=== PATIENT | male | born 1970 | race Hispanic/Latino ===

== ENCOUNTER 2018-08-28 13:44 | Emergency (ER) | payer OTHER ==
[2018-08-28 15:27] LABS: Absolute Lymphocytes (CBC) 1.7 K/uL (0.7-4.9); Absolute Monocytes 0.6 K/uL (0.1-1.3); Absolute Neutrophil 5.8 K/uL (1.8-8.0); Basophils % 0.8 % (0-1.3); Hematocrit 49.7 % (39.6-49.0); Lymphocytes % 20.2 % (15.3-44.8); MPV 8.7 fL (7.6-11.3); Monocytes % 7.1 % (3.3-12.3); RBC Red Blood Cell Count 5.57 M/uL (4.33-5.43)
[2018-08-28 15:29] LABS: Protime INR 0.96
--- NOTE | 2018-08-28 15:30 | RAD REPORT ---
EXAM DESCRIPTION: CT - Head Brain Wo Cont - 08/28/2018 3:15 pm CLINICAL HISTORY: Left arm numbness COMPARISON: 2015 TECHNIQUE: Computed axial tomography of the head was obtained. IV contrast was not requested. All CT scans are performed using dose optimization technique as appropriate and may include automated exposure control or mA/KV adjustment according to patient size. FINDINGS: An intracranial bleed is not seen . The ventricles are normal in caliber. No extra-axial fluid collection is noted. Fluid within the sinuses/ mastoids is not seen. IMPRESSION: No acute intracranial abnormality is seen. If patient's symptoms persist MRI of the bra in would be recommended.
--- NOTE | 2018-08-28 15:39 | RAD REPORT ---
EXAM DESCRIPTION: Valeriy Single View08/28/2018 3:31 pm CLINICAL HISTORY: Chest pain COMPARISON: 2016 FINDINGS: The lungs appear clear of acute infiltrate. The heart is normal size IMPRESSION: No acute abnormalities displayed
[2018-08-28 15:47] LABS: ALT/SGPT 62 U/L (12-78); AST/SGOT 28 U/L (15-37); Albumin 4.1 g/dL (3.4-5.0); Alkaline Phosphatase 81 U/L (45-117); BUN Blood Urea Nitrogen 12 mg/dL (7-18); Bicarbonate 25 mmol/L (21-32); Bilirubin Direct < 0.1 mg/dL (0-0.2); Bilirubin Total 0.4 mg/dL (0.2-1.0); Glucose Level 95 mg/dL (74-106); Magnesium 2.2 mg/dL (1.8-2.4); NT PRO-BNP 14 pg/mL (<125); Potassium 3.8 mmol/L (3.5-5.1); Protein, Total 7.5 g/dL (6.4-8.2); Sodium Level 140 mmol/L (136-145); Troponin (Emerg Dept Use Only) < 0.02 ng/mL (0.0-0.045)
--- NOTE | 2018-08-28 16:10 | EDPHYS ---
Physician Documentation [facility] Name: Charles Sandoval Age: 47 yrs Sex: Male : 1970 Arrival Date: 08/28/2018 Time: 13:46 Bed 17 Private MD: ED Physician Emmanuel Huntley HPI: 08/28 18:02 This 47 yrs old Male presents to ER via Ambulatory with complaints of Numbness kdr Of Arm, Dizziness. 18:02 The patient or guardian complains of Tingling and pain to left upper extremity that kdr started yesterday. The complaints affect the left bicep. Context: The problem was sustained at home. Onset: The symptoms/episode began/occurred gradually, yesterday. Treatment prior to arrival includes: no previous treatment. Modifying factors: The symptoms are alleviated by nothing. the symptoms are aggravated by nothing. Associated signs and symptoms: The patient has no apparent associated signs or symptoms. Severity of symptoms: At their worst the symptoms were very mild. The patient has not experienced similar symptoms in the past. The patient has not recently seen a physician. Historical: - Allergies: 13:50 Celebrex; sg - Home Meds: 13:50 bupropion HCl 100 mg Oral tab 1 tab 3 times per day [Active]; sg - PMHx: 13:50 Depression; PTSD; sg - PSHx: 13:50 inguinal hernia; left knee; sg - Immunization history:: Adult Immunizations up to date. - Social history:: Smoking status: Patient/guardian denies using tobacco. - Ebola Screening: : Patient negative for fever greater than or equal to 101.5 degrees Fahrenheit, and additional compatible Ebola Virus Disease symptoms Patient denies exposure to infectious person Patient denies travel to an Ebola-affected area in the 21 days before illness onset No symptoms or risks identified at this time. ROS: 18:02 Constitutional: Negative for fever, chills, and weight loss, Eyes: Negative for injury, kdr pain, redness, and discharge, ENT: Negative for injury, pain, and discharge, Neck: Negative for injury, pain, and swelling, Cardiovascular: Negative for chest pain, palpitations, and edema, Respiratory: Negative for shortness of breath, cough, wheezing, and pleuritic chest pain, Abdomen/GI: Negative for abdominal pain, nausea, vomiting, diarrhea, and constipation, Back: Negative for injury and pain, : Negative for injury, bleeding, discharge, and swelling, MS/Extremity: Negative for injury and deformity, Skin: Negative for injury, rash, and discoloration, Psych: Negative for depression, suicide ideation, homicidal ideation, and hallucinations - postive for anxiety Allergy/Immunology: Negative for hives, rash, and allergies, Endocrine: Negative for neck swelling, polydipsia, polyuria, polyphagia, and marked weight changes, Hematologic/Lymphatic: Negative for swollen nodes, abnormal bleeding, and unusual bruising. 18:02 Neuro: Positive for tingling, of the left bicep. Exam: 18:02 Constitutional: This is a well developed, well nourished patient who is awake, alert, kdr and in no acute distress. Head/Face: Normocephalic, atraumatic. Eyes: Pupils equal round and reactive to light, extra-ocular motions intact. Lids and lashes normal. Conjunctiva and sclera are non-icteric and not injected. Cornea within normal limits. Periorbital areas with no swelling, redness, or edema. Neck: Trachea midline, no thyromegaly or masses palpated, and no cervical lymphadenopathy. Supple, full range of motion without nuchal rigidity, or vertebral point tenderness. No Meningismus. Chest/axilla: Normal chest wall appearance and motion. Nontender with no deformity. No lesions are appreciated. Cardiovascular: Regular rate and rhythm with a normal S1 and S2. No gallops, murmurs, or rubs. Normal PMI, no JVD. No pulse deficits. Respiratory: Lungs have equal breath sounds bilaterally, clear to auscultation and percussion. No rales, rhonchi or wheezes noted. No increased work of breathing, no retractions or nasal flaring. Abdomen/GI: Soft, non-tender, with normal bowel sounds. No distension or tympany. No guarding or rebound. No evidence of tenderness throughout. Back: No spinal tenderness. No costovertebral tenderness. Full range of motion. Skin: Warm, dry with normal turgor. Normal color with no rashes, no lesions, and no evidence of cellulitis. MS/ Extremity: Pulses equal, no cyanosis. Neurovascular intact. Full, normal range of motion. Neuro: Awake and alert, GCS 15, oriented to person, place, time, and situation. Cranial nerves II-XII grossly intact. Motor strength 5/5 in all extremities. Sensory grossly intact. Cerebellar exam normal. Normal gait. Psych: Awake, alert, with orientation to person, place and time. Behavior, mood, and affect are within normal limits. Vital Signs: 13:50 BP 140 / 99; Pulse 98; Resp 17; Pulse Ox 100% on R/A; Weight 77.11 kg; Pain 6/10; sg 14:10 BP 112 / 84; Pulse 73; Resp 18; Pulse Ox 99% on R/A; Pain 0/10; em 15:31 BP 128 / 91; Pulse 75; Resp 18; Pulse Ox 99% on R/A; em 16:38 BP 134 / 86; Pulse 70; Resp 18; Pulse Ox 99% on R/A; em MDM: 16:10 Patient medically screened. [facility] 18:02 Data reviewed: vital signs, nurses notes. Counseling: I had a detailed discussion with kdr the patient and/or guardian regarding: the historical points, exam findings, and any diagnostic results supporting the discharge/admit diagnosis, lab results, radiology results, the need for outpatient follow up. 08/28 14:58 Order name: Basic Metabolic Panel; Complete Time: 16: [facility] 08/28 14:58 Order name: CBC with Diff; Complete Time: 16: [facility] 08/28 14:58 Order name: LFT's; Complete Time: 16: [facility] 08/28 14:58 Order name: Magnesium; Complete Time: 16: [facility] 08/28 14:58 Order name: NT PRO-BNP; Complete Time: 16: [facility] 08/28 14:58 Order name: PT-INR; Complete Time: 16: [facility] 08/28 14:58 Order name: Troponin (emerg Dept Use Only); Complete Time: 16:08 [facility] 08/28 14:58 Order name: XRAY Chest (1 view); Complete Time: 16:08 [facility] 08/28 14:58 Order name: EKG; Complete Time: 14:59 [facility] 08/28 14:58 Order name: Cardiac monitoring; Complete Time: 14:58 [facility] 08/28 14:58 Order name: EKG - Nurse/Tech; Complete Time: 14:59 [facility] 08/28 14:58 Order name: IV Saline Lock; Complete Time: 14:59 [facility] 08/28 14:58 Order name: Labs collected and sent; Complete Time: 14:59 kdr 08/28 14:58 Order name: CT Head Brain wo Cont; Complete Time: 16:08 kdr 08/28 14:58 Order name: O2 Per Protocol; Complete Time: 14:59 kdr 08/28 14:58 Order name: O2 Sat Monitoring; Complete Time: 14:59 kdr Administered Medications: No medications were administered Disposition: 08/28/18 16:10 Discharged to Home. Impression: Left upper extremity tingling - improved. - Condition is Stable. - Discharge Instructions: Paresthesia, Cgay-iu-Gons, Generalized Anxiety Disorder. - Medication Reconciliation Form, Thank You Letter form. - Follow up: Private Physician; When: 2 - 3 days; Reason: If symptoms return, Further diagnostic work-up, Recheck today's complaints, Continuance of care, Re-evaluation by your physician. - Problem is new. - Symptoms have improved. Signatures: Dispatcher [employer] Caesar Sims RN RN Emmanuel Huntley MD MD kdr Andre Davis, SALES MERCHANDISING SPECIALIST SALES MERCHANDISING SPECIALIST em Corrections: (The following items were deleted from the chart) 16:40 16:10 08/28/2018 16:10 Discharged to Home. Impression: Left upper extremity tingling - em improved. Condition is Stable. Forms are Medication Reconciliation Form, Thank You Letter, Antibiotic Education, Prescription Opioid Use. Follow up: Private Physician; When: 2 - 3 days; Reason: If symptoms return, Further diagnostic work-up, Recheck today's complaints, Continuance of care, Re-evaluation by your physician. Problem is new. Symptoms have improved. kdr
--- NOTE | 2018-08-28 16:10 | ER ---
Nurse's Notes [facility] Name: Charles Sandoval Age: 47 yrs Sex: Male : 1970 Arrival Date: 08/28/2018 Time: 13:46 Bed 17 Private MD: Diagnosis: Left upper extremity tingling - improved Presentation: 08/28 13:48 Presenting complaint: Patient states: Left arm numbness that started last night before sg bed, reports the numbness has gotten worse has now moved into his neck, denies any visual changes at this time, reports having allergy symptoms in his eyes, no weakness reported at this time. Transition of care: patient was not received from another setting of care. Onset of symptoms was August 27, 2018. Risk Assessment: Do you want to hurt yourself or someone else? Patient reports no desire to harm self or others. Initial Sepsis Screen: Does the patient meet any 2 criteria? No. Patient's initial sepsis screen is negative. Does the patient have a suspected source of infection? No. Patient's initial sepsis screen is negative. Care prior to arrival: None. 13:48 Method Of Arrival: Ambulatory sg 13:48 Acuity: WILLIAM 3 sg Historical: - Allergies: 13:50 Celebrex; sg - Home Meds: 13:50 bupropion HCl 100 mg Oral tab 1 tab 3 times per day [Active]; sg - PMHx: 13:50 Depression; PTSD; sg - PSHx: 13:50 inguinal hernia; left knee; sg - Immunization history:: Adult Immunizations up to date. - Social history:: Smoking status: Patient/guardian denies using tobacco. - Ebola Screening: : Patient negative for fever greater than or equal to 101.5 degrees Fahrenheit, and additional compatible Ebola Virus Disease symptoms Patient denies exposure to infectious person Patient denies travel to an Ebola-affected area in the 21 days before illness onset No symptoms or risks identified at this time. Screenin:10 Abuse screen: Denies threats or abuse. Nutritional screening: No deficits noted. em Tuberculosis screening: No symptoms or risk factors identified. Fall Risk None identified. Assessment: 14:10 General: Appears in no apparent distress. comfortable, Behavior is calm, cooperative, em Denies fever. Pain: Complains of pain in left bicep Pain currently is 0 out of 10 on a pain scale. Neuro: Level of Consciousness is awake, alert, obeys commands, Oriented to person, place, time, situation, Reinforcer are equal bilaterally Moves all extremities. Gait is steady, Speech is normal, Facial symmetry appears normal, Tingling in left arm Numbness in left arm Reports dizziness. Cardiovascular: Denies chest pain, shortness of breath, Capillary refill < 3 seconds Patient's skin is warm and dry. Respiratory: Airway is patent Respiratory effort is even, unlabored, Respiratory pattern is regular, symmetrical, Breath sounds are clear bilaterally. Denies cough. GI: Abdomen is flat, Reports nausea. Derm: Skin is intact, is healthy with good turgor, Skin is pink, warm \T\ dry. Musculoskeletal: Capillary refill < 3 seconds, Range of motion: intact in all extremities. 14:30 Reassessment: Patient appears in no apparent distress at this time. I agree with above iw assessment by Andre Davis LVN. 15:32 Reassessment: Patient appears in no apparent distress at this time. Patient and/or em family updated on plan of care and expected duration. Pain level reassessed. Patient is alert, oriented x 3, equal unlabored respirations, skin warm/dry/pink. 16:38 Reassessment: Patient appears in no apparent distress at this time. Patient and/or em family updated on plan of care and expected duration. Pain level reassessed. Patient is alert, oriented x 3, equal unlabored respirations, skin warm/dry/pink. Patient states feeling better. Patient states symptoms have improved. Vital Signs: 13:50 BP 140 / 99; Pulse 98; Resp 17; Pulse Ox 100% on R/A; Weight 77.11 kg; Pain 6/10; sg 14:10 BP 112 / 84; Pulse 73; Resp 18; Pulse Ox 99% on R/A; Pain 0/10; em 15:31 BP 128 / 91; Pulse 75; Resp 18; Pulse Ox 99% on R/A; em 16:38 BP 134 / 86; Pulse 70; Resp 18; Pulse Ox 99% on R/A; em ED Course: 13:46 Patient arrived in ED. mr 13:50 Triage completed. sg 13:50 Arm band placed on. sg 14:02 Andre Davis LVN is Primary Nurse. em 14:10 Patient has correct armband on for positive identification. Placed in gown. Bed in low em position. Call light in reach. case monitor on. Pulse ox on. NIBP on. 14:40 Emmanuel Huntley MD is Attending Physician. iw 15:00 Initial lab(s) drawn, by me, sent to lab. Inserted saline lock: 20 gauge in right em antecubital area, using aseptic technique. Blood collected. 15:[address] 15:14 CT completed. Patient tolerated procedure well. Patient moved back from CT. nj 15:15 CT Head Brain wo Cont In Process Unspecified. EDMS 15:30 XRAY Chest (1 view) In Process Unspecified. EDMS 16:40 No provider procedures requiring assistance completed. IV discontinued, intact, em bleeding controlled, No redness/swelling at site. Pressure dressing applied. Administered Medications: No medications were administered Outcome: 16:10 Discharge ordered by . kdr 16:40 Discharged to home ambulatory, with family. em 16:40 Condition: good 16:40 Discharge instructions given to patient, family, Instructed on discharge instructions, follow up and referral plans. Demonstrated understanding of instructions, follow-up care. 16:40 Patient left the ED. em Signatures: Dispatcher [employer] EDMS Caesar Ramos, NAN [place] Emmanuel Huntley MD MD kdr Rivera, Andre Page, PBX WIRE CHIEF PBX WIRE CHIEF em Lavinia Champagne, RN RN Sahil, Keanu Gomez
--- NOTE | 2018-08-29 09:45 | EKG ---
Test Date: 2018-08-28 Test Time: 13:53:03 Spear Fisher: ARIE MEASUREMENT RESULTS: Intervals: Rate: 69 TN: 184 QRSD: 90 QT: 362 QTc: 387 [place]: P: 20 TN: 184 QRS: 70 T: 30 INTERPRETIVE STATEMENTS: Normal sinus rhythm Normal ECG Compared to ECG 10/14/2015 13:04:58 First degree AV block no longer present Electronically Signed On 08-29-18 09:43:07 CDT by David Hughes
== END 2018-08-28 16:40 | disposition home or self-care (01) ==
LOC: ER 13:44
DX: R20.2 Paresthesia of skin (principal); F32.9 Major depressive disorder, single episode, unspecified; F43.10 Post-traumatic stress disorder, unspecified; Z88.8 Allergy status to other drugs, medicaments and biological substances
CPT/HCPCS: 36415; 70450; 71045; 80048; 80076; 83735; 83880; 84484; 85025; 85610; 93005; 99285

== ENCOUNTER 2021-07-09 15:24 | Emergency (ER) | payer OTHER ==
[2021-07-09 16:11] LABS: Absolute Lymphocytes (CBC) 1.9 K/uL (0.7-4.9); Hematocrit 45.4 % (39.6-49.0); MPV 7.8 fL (7.6-11.3); RBC Red Blood Cell Count 5.13 M/uL (4.33-5.43)
--- NOTE | 2021-07-09 16:13 | RAD REPORT ---
EXAM DESCRIPTION: CT - Head Brain Wo Cont - 07/09/2021 3:57 pm CLINICAL HISTORY: Dizziness COMPARISON: 2018 TECHNIQUE: Computed axial tomography of the head was obtained. IV contrast was not requested. All CT scans are performed using dose optimization technique as appropriate and may include automated exposure control or mA/KV adjustment according to patient size. FINDINGS: An intracranial bleed is not seen . The ventricles are normal in caliber. No extra-axial fluid collection is noted. Fluid within the sinuses/ mastoids is not seen. IMPRESSION: No acute intracranial abnormality is seen. If patient's symptoms persist MRI of the bra in would be recommended.
[2021-07-09 16:15] LABS: Protime INR 1.01
[2021-07-09 16:37] LABS: Albumin 3.9 g/dL (3.4-5.0); Bilirubin Direct 0.1 mg/dL (0-0.2); Bilirubin Total 0.6 mg/dL (0.2-1.0); Magnesium 2.2 mg/dL (1.8-2.4); Potassium 3.8 mmol/L (3.5-5.1); Protein, Total 7.4 g/dL (6.4-8.2)
[2021-07-09 16:39] LABS: Troponin High Sensitivity 25.7 pg/mL (<58.9)
--- NOTE | 2021-07-09 16:59 | EDPHYS ---
Physician Documentation [facility] Name: Charles Sandoval Age: 50 yrs Sex: Male : 1970 Arrival Date: 07/09/2021 Time: 15:26 Bed 18 Private MD: ED Physician Adi Feliz HPI: 07/09 16:21 This 50 yrs old Male presents to ER via Ambulatory with complaints of Numbness jr8 Of Arm - L, Dizziness. 16:21 The patient's problem is reported as paresthesias, in left upper extremity, dizziness . jr8 Onset: The symptoms/episode began/occurred acutely, today. Duration: The episode is continuous. Context: occurred at work. The symptoms are alleviated by nothing. The symptoms are aggravated by nothing. Associated signs and symptoms: The patient has no apparent associated signs or symptoms. Severity of symptoms: At their worst the symptoms were moderate in the emergency department the symptoms have improved moderately. Patient's baseline: Neuro: alert and fully oriented, Motor: no deficits, Ambulation: walks without assistance, Speech: normal. The patient has not experienced similar symptoms in the past. The patient has not recently seen a physician. Patient stated that he suffers from anxiety. Shortly after eating lunch started to feel slightly anxious but then started to become dizzy and feel tingling in left arm. Denies any other symptoms at this time . Historical: - Allergies: 15:34 Celebrex; ph - PMHx: 15:34 Depression; Hypertensive disorder; PTSD; ph - PSHx: 15:34 hernia repair; ACL; ph - Immunization history:: Adult Immunizations unknown. - Social history:: Smoking status: Patient reports use of chewing tobacco. ROS: 16:21 Eyes: Negative for injury, pain, redness, and discharge, ENT: Negative for injury, jr8 pain, and discharge, Neck: Negative for injury, pain, and swelling, Cardiovascular: Negative for chest pain, palpitations, and edema, Respiratory: Negative for shortness of breath, cough, wheezing, and pleuritic chest pain, Abdomen/GI: Negative for abdominal pain, nausea, vomiting, diarrhea, and constipation, Back: Negative for injury and pain, MS/Extremity: Negative for injury and deformity, Skin: Negative for injury, rash, and discoloration. 16:21 Neuro: Positive for dizziness, tingling. Exam: 16:21 Radiologist reports: No acute findings jr8 16:21 Constitutional: This is a well developed, well nourished patient who is awake, alert, and in no acute distress. Eyes: Pupils equal round and reactive to light, extra-ocular motions intact. Lids and lashes normal. Conjunctiva and sclera are non-icteric and not injected. Cornea within normal limits. Periorbital areas with no swelling, redness, or edema. ENT: Nares patent. No nasal discharge, no septal abnormalities noted. Tympanic membranes are normal and external auditory canals are clear. Oropharynx with no redness, swelling, or masses, exudates, or evidence of obstruction, uvula midline. Mucous membranes moist. Neck: Trachea midline, no thyromegaly or masses palpated, and no cervical lymphadenopathy. Supple, full range of motion without nuchal rigidity, or vertebral point tenderness. No Meningismus. Cardiovascular: Regular rate and rhythm with a normal S1 and S2. No gallops, murmurs, or rubs. Normal PMI, no JVD. No pulse deficits. Respiratory: Lungs have equal breath sounds bilaterally, clear to auscultation and percussion. No rales, rhonchi or wheezes noted. No increased work of breathing, no retractions or nasal flaring. Abdomen/GI: Soft, non-tender, with normal bowel sounds. No distension or tympany. No guarding or rebound. No evidence of tenderness throughout. Back: No spinal tenderness. No costovertebral tenderness. Full range of motion. Skin: Warm, dry with normal turgor. Normal color with no rashes, no lesions, and no evidence of cellulitis. MS/ Extremity: Pulses equal, no cyanosis. Neurovascular intact. Full, normal range of motion. Neuro: Awake and alert, GCS 15, oriented to person, place, time, and situation. Cranial nerves II-XII grossly intact. Motor strength 5/5 in all extremities. Sensory grossly intact. Cerebellar exam normal. Normal gait. Vital Signs: 15:29 BP 127 / 98; Pulse 82; Resp 18; Temp 98.0; Pulse Ox 99% on R/A; Weight 92.99 kg; Height ph 5 ft. 6 in. (167.64 cm); 17:26 BP 138 / 85; Pulse 69; Resp 16; Pulse Ox 99% ; Pain 0/10; ll1 15:29 Body Mass Index 33.09 (92.99 kg, 167.64 cm) ph NIH Stroke Scale Scores: 16:21 NIHSS Score: 0 MDM: 15:36 Patient medically screened. 16:57 Data reviewed: vital signs, nurses notes, lab test result(s), EKG, radiologic studies, CT scan, plain films. Data interpreted: Pulse oximetry: on room air is 99 %. Interpretation: normal. Counseling: I had a detailed discussion with the patient and/or guardian regarding: the historical points, exam findings, and any diagnostic results supporting the discharge/admit diagnosis, lab results, radiology results, the need for outpatient follow up, a family practitioner, to return to the emergency department if symptoms worsen or persist or if there are any questions or concerns that arise at home. ED course: Patient hemodynamically stable. No acute findings on exam, labs, or imaging. Will send home close return precautions and to f/u with PCP which patient is good with . 07/09 15:37 Order name: Basic Metabolic Panel; Complete Time: 16:43 07/09 15:37 Order name: CBC with Diff; Complete Time: 16:13 07/09 15:37 Order name: LFT's; Complete Time: 16:43 07/09 15:37 Order name: Magnesium; Complete Time: 16:43 07/09 15:37 Order name: NT PRO-BNP; Complete Time: 16:43 07/09 15:37 Order name: PT-INR; Complete Time: 16:24 07/09 15:37 Order name: Troponin HS; Complete Time: 16:43 07/09 15:37 Order name: XRAY Chest (1 view); Complete Time: 17:19 07/09 15:37 Order name: EKG; Complete Time: 15:38 07/09 15:37 Order name: Cardiac monitoring; Complete Time: 17:29 07/09 15:37 Order name: EKG - Nurse/Tech; Complete Time: 17:29 07/09 15:37 Order name: IV Saline Lock; Complete Time: 16:05 07/09 15:37 Order name: Labs collected and sent; Complete Time: 16:04 07/09 15:46 Order name: CT Head Brain wo Cont; Complete Time: 16:24 jr8 07/09 15:37 Order name: O2 Per Protocol; Complete Time: 16:04 jr8 07/09 15:37 Order name: O2 Sat Monitoring; Complete Time: 16:04 jr8 Administered Medications: No medications were administered Disposition Summary: 07/09/21 16:58 Discharge Ordered Location: Home jr8 Problem: new jr8 Symptoms: have improved jr8 Condition: Stable jr8 Diagnosis - Paresthesia of skin jr8 - Dizziness and giddiness jr8 Followup: jr8 - With: Private Physician - When: 1 - 2 days - Reason: Recheck today's complaints, Continuance of care, Re-evaluation by your physician Followup: jr8 - With: Phi Gray MD - When: 2 - 3 days - Reason: Recheck today's complaints, Continuance of care, Re-evaluation by your physician Discharge Instructions: - Discharge Summary Sheet jr8 - Dizziness jr8 - Paresthesia jr8 Forms: - Medication Reconciliation Form jr8 - Thank You Letter jr8 - Antibiotic Education jr8 - Prescription Opioid Use jr8 NIH Stroke Scale - NIH Stroke Score Date: 07/09/2021 Time: 16:21 Total Score = 0 1a. Level of Consciousness (LOC) - 0(Alert) 1b. Level of Consciousness (LOC) (Month \T\ Age) - 0(Both) 1c. LOC Commands (Open \T\ Closes Eyes/Forger Helper) - 0(Both) 2. Best Gaze (Lateral Gaze Paresis) - 0(Normal) 3. Visual Field Loss - 0(No visual loss) 4. Facial Palsy - 0(Normal) 5a. Left Arm: Motor (10-second hold) - 0(No drift) 5b. Right Arm: Motor (10-second hold) - 0(No drift) 6a. Left Leg: Motor (5-second hold - always test supine) - 0(No drift) 6b. Right Leg: Motor (5-second hold - always test supine) - 0(No drift) 7. Limb Ataxia (finger/nose \T\ heel/will - test with eyes open) - 0(Absent) 8. Sensory Loss (pinprick arms/legs/face) - 0(Normal) 9. Best Language: Aphasia (description/naming/reading) - 0(No aphasia) 10. Dysarthria (speech clarity - read or repeat words) - 0(Normal) 11. Extinction and Inattention (visual/tactile/auditory/spatial/personal) - 0(No abnormality) Initials: leena Signatures: Dispatcher [employer] Chano Hansen PA PA jr8 Susie Bojorquez RN RN ph
--- NOTE | 2021-07-09 16:59 | ER ---
Nurse's Notes [facility] Name: Charles Sandoval Age: 50 yrs Sex: Male : 1970 Arrival Date: 07/09/2021 Time: 15:26 Bed 18 Private MD: Diagnosis: Paresthesia of skin;Dizziness and giddiness Presentation: 07/09 15:29 Chief complaint: Patient states: "I was at work and I started feeling dizzy and my L ph arm started feeling numb. I thought it may be my blood pressure so I took one of my lisinopril." Pt denies chest pain or SOB, denies weakness, no facial droop noted. Coronavirus screen: Vaccine status: Patient reports receiving the 2nd dose of the covid vaccine. Ebola Screen: No symptoms or risks identified at this time. Initial Sepsis Screen: Does the patient meet any 2 criteria? No. Patient's initial sepsis screen is negative. Does the patient have a suspected source of infection? No. Patient's initial sepsis screen is negative. Risk Assessment: Do you want to hurt yourself or someone else? Patient reports no desire to harm self or others. Onset of symptoms was July 09, 2021. 15:29 Method Of Arrival: Ambulatory 15:29 Acuity: WILLIAM 3 ph Historical: - Allergies: 15:34 Celebrex; ph - PMHx: 15:34 Depression; Hypertensive disorder; PTSD; ph - PSHx: 15:34 hernia repair; ACL; ph - Immunization history:: Adult Immunizations unknown. - Social history:: Smoking status: Patient reports use of chewing tobacco. Screenin:28 Abuse screen: Denies threats or abuse. Nutritional screening: No deficits noted. ll1 Tuberculosis screening: No symptoms or risk factors identified. Fall Risk IV access (20 points). Gait- Impaired (20 pts.). Total Villatoro Fall Scale indicates Low Risk Score (25-44 pts). Fall prevention measures have been instituted. Side Rails Up X 2 Frequent Obs/Assesments occuring As available Patient and Family Educated on Fall Prevention Program and strategies. Assessment: 16:15 General: Appears in no apparent distress. Behavior is calm, cooperative, appropriate ll1 for age. Pain: Denies pain. Neuro: Level of Consciousness is awake, alert, obeys commands, Oriented to person, place, time, situation, Appropriate for age Order Department Supervisor are equal bilaterally Moves all extremities. Full function Gait is steady, Speech is normal, Facial symmetry appears normal, Reports dizziness, numbness paresthesias. Cardiovascular: No deficits noted. Respiratory: No deficits noted. 17:15 Reassessment: No changes from previously documented assessment. Patient and/or family ll1 updated on plan of care and expected duration. Pain level reassessed. Patient is alert, oriented x 3, equal unlabored respirations, skin warm/dry/pink. Vital Signs: 15:29 BP 127 / 98; Pulse 82; Resp 18; Temp 98.0; Pulse Ox 99% on R/A; Weight 92.99 kg; Height ph 5 ft. 6 in. (167.64 cm); 17:26 BP 138 / 85; Pulse 69; Resp 16; Pulse Ox 99% ; Pain 0/10; ll1 15:29 Body Mass Index 33.09 (92.99 kg, 167.64 cm) ph NIH Stroke Scale Scores: 16:21 NIHSS Score: 0 jr ED Course: 15:26 Patient arrived in ED. ds1 15:34 Triage completed. ph 15:35 Arm band placed on. ph 15:36 Chano Summers PA is PHCP. jr8 15:36 Adi Feliz MD is Attending Physician. jr8 15:56 CT Head Brain wo Cont In Process Unspecified. EDMS 16:07 Shannan Walls, NAN is Primary Nurse. ll1 16:07 Initial lab(s) drawn, by va, sent to lab. Inserted saline lock: 20 gauge in right iw antecubital area, using aseptic technique. Blood collected. 17:02 Phi Gray MD is Referral Physician. jr8 17:10 XRAY Chest (1 view) In Process Unspecified. EDMS 17:28 Patient has correct armband on for positive identification. Bed in low position. Call ll1 light in reach. Side rails up X 1. media monitor on. Pulse ox on. NIBP on. 17:28 No provider procedures requiring assistance completed. IV discontinued, intact, ll1 bleeding controlled, No redness/swelling at site. Pressure dressing applied. Administered Medications: No medications were administered Outcome: 16:58 Discharge ordered by . jr8 17:28 Discharged to home ambulatory. ll1 17:28 Condition: stable 17:28 Discharge instructions given to patient, Instructed on discharge instructions, follow up and referral plans. Demonstrated understanding of instructions, follow-up care. 17:29 Patient left the ED. ll1 NIH Stroke Scale - NIH Stroke Score Date: 07/09/2021 Time: 16:21 Total Score = 0 1a. Level of Consciousness (LOC) - 0(Alert) 1b. Level of Consciousness (LOC) (Month \\T\\ Age) - 0(Both) 1c. LOC Commands (Open \\T\\ Closes Eyes/Button Station Worker) - 0(Both) 2. Best Gaze (Lateral Gaze Paresis) - 0(Normal) 3. Visual Field Loss - 0(No visual loss) 4. Facial Palsy - 0(Normal) 5a. Left Arm: Motor (10-second hold) - 0(No drift) 5b. Right Arm: Motor (10-second hold) - 0(No drift) 6a. Left Leg: Motor (5-second hold - always test supine) - 0(No drift) 6b. Right Leg: Motor (5-second hold - always test supine) - 0(No drift) 7. Limb Ataxia (finger/nose \\T\\ heel/will - test with eyes open) - 0(Absent) 8. Sensory Loss (pinprick arms/legs/face) - 0(Normal) 9. Best Language: Aphasia (description/naming/reading) - 0(No aphasia) 10. Dysarthria (speech clarity - read or repeat words) - 0(Normal) 11. Extinction and Inattention (visual/tactile/auditory/spatial/personal) - 0(No abnormality) Initials: jrVickie Signatures: Dispatcher [employer] [facility] HospitalYesenia puentes ds1 Lavinia Champagne, RN Chano Jarrett PA PA jr8 Susie Bojorquez, RN RN Shannan An, RN RN ll1
--- NOTE | 2021-07-09 17:17 | RAD REPORT ---
EXAM DESCRIPTION: Valeriy Single View07/09/2021 5:10 pm CLINICAL HISTORY: Chest pain COMPARISON: 2018 FINDINGS: The lungs appear clear of acute infiltrate. The heart is normal size IMPRESSION: No acute abnormalities displayed
[2021-07-09 18:24] VITALS: TEMP 98; O2SAT 99
[2021-07-09 18:25] VITALS: BP 138/85
--- NOTE | 2021-07-10 07:24 | EKG ---
Test Date: 2021-07-09 Test Time: 16:34:31 Automatic Coin Machine Mechanic: BRIELLE MEASUREMENT RESULTS: Intervals: Rate: 71 PA: 186 QRSD: 90 QT: 374 QTc: 406 [place]: P: 37 PA: 186 QRS: 88 T: 38 INTERPRETIVE STATEMENTS: Normal sinus rhythm Normal ECG Compared to ECG 08/28/2018 13:53:03 No significant changes Electronically Signed On 07-10-21 07:22:34 PET GROOMER by David Hughes
== END 2021-07-09 17:29 | disposition home or self-care (01) ==
LOC: ER 15:24
DX: R20.2 Paresthesia of skin (principal); R42 Dizziness and giddiness; I10 Essential (primary) hypertension; Z88.8 Allergy status to other drugs, medicaments and biological substances
CPT/HCPCS: 36415; 70450; 71045; 80048; 80076; 83735; 83880; 84484; 85025; 85610; 93005; 99284